=== PATIENT | female | born 1990 | race African-American/Black ===

== ENCOUNTER 2016-06-16 19:44 | Emergency (ER) | payer MEDICARE, OTHER ==
[~2016-06-16 19:44] MED LIST: IBUPROFEN800 MG PO
[2016-06-16] MEDS ORDERED: NO MEDICATIONS (19:58)
== END 2016-06-16 21:39 | disposition home or self-care (01) ==
LOC: SED 19:44
DX: F15.180 Other stimulant abuse with stimulant-induced anxiety disorder (principal); F15.182 Other stimulant abuse with stimulant-induced sleep disorder; F19.10 Other psychoactive substance abuse, uncomplicated; F17.200 Nicotine dependence, unspecified, uncomplicated
CPT/HCPCS: 99283